=== PATIENT | male | born 1955 | race African-American/Black ===

== ENCOUNTER 2025-02-04 07:04 | Emergency (ER) | payer OTHER ==
[~2025-02-04] VITALS: Ht 172.7 cm; Wt 82.0 kg
[2025-02-04 07:13] VITALS: O2SAT 100
[2025-02-04 08:02] LABS: HEMATOCRIT. 38.4 % (42.0-52.0); HEMOGLOBIN. 12.9 g/dL (14.0-18.0); MEAN PLATELET VOLUME 9.7 fl (7.4-10.4); PLATELET 251 x1000/uL (130-400); RED BLOOD CELL COUNT 4.08 mill/uL (4.7-6.1); RED CELL DISTRIBUTION WIDTH 13.6 % (11.6-14.6)
[2025-02-04 08:16] LABS: CREATININE 1.3 mg/dL (0.6-1.3); TROPONIN I HIGH SENSITIVITY 13 ng/L (3.0-53); UREA NITROGEN BLOOD 15 mg/dL (9-23)
[2025-02-04 08:18] LABS: ASPARTATE AMINOTRANSFERASE 12 IU/L (<34); BILIRUBIN DIRECT 0.3 mg/dL (<=3.0); BILIRUBIN TOTAL 1.0 mg/dL (0.1-1.0); PROTEIN TOTAL 7.6 g/dL (6.0-8.3)
[2025-02-04] MEDS: MAGNESIUM/ALUMINUM HYDROXIDE/SIMETHICONE 30ML UDC PO ONE (09:01)
[2025-02-04 10:06] LABS: CLARITY URINE TURBID (CLEAR); COLOR URINE YELLOW (YELLOW); GLUCOSE URINE NEGATIVE (NEGATIVE); KETONES URINE 1+ (NEGATIVE); LEUKOCYTE ESTERASE URINE 3+ (NEGATIVE); NITRITE URINE POSITIVE (NEGATIVE); OCCULT BLOOD URINE 3+ (NEGATIVE); PH URINE 5.5 (4.5-8.0); PROTEIN URINE 2+ (NEGATIVE); SPECIFIC GRAVITY URINE 1.016 (1.005-1.030); UROBILINOGEN URINE 1.0 E.U./dL (0.2-1.0)
[2025-02-04] MEDS ORDERED: IBUP-1455 MT (10:07)
[2025-02-04] MEDS ORDERED: CEPH500C2 MT (10:07)
[2025-02-04 10:18] VITALS: BP 175/86; PULSE 65; RESP 18; TEMP 36.9; O2SAT 100
[2025-02-04 10:19] LABS: SQUAMOUS EPITHELIAL CELL URINE RARE /lpf (RARE/1+); WBC URINE TNTC /hpf (0-2)
[2025-02-04 10:20] LABS: RBC URINE 15-25 /hpf (0-2)
[2025-02-04 10:21] LABS: BACTERIA URINE 3+
[2025-02-04 11:56] LABS: BAND% 7.0 % (1.0-6.0); EOSINOPHILS % MANUAL 1.0 % (0.0-5.0); LYMPHOCYTES % MANUAL 8.0 % (20.0-50.0); MONOCYTES % MANUAL 6.0 % (2.0-8.0); NEUTROPHILS % MANUAL 78.0 % (45.0-75.0); PLATELET ESTIMATE NORMAL
== END 2025-02-04 10:19 | disposition home or self-care (01) ==
LOC: ER 07:04
DX: N30.00 Acute cystitis without hematuria (principal); R10.9 Unspecified abdominal pain
CPT/HCPCS: 36415; 74176; 80048; 80076; 81003; 84484; 85025; 87077; 87186; 93005; 99284